=== PATIENT | male | born 1990 | race African-American/Black ===

== ENCOUNTER 2016-10-28 07:54 | Emergency (ER) | payer BC ==
--- NOTE | 2016-10-28 08:06 | EDM.PDOC ---
ED HPI Skin/Rash - General Chief Complaint: Skin Complaint Stated Complaint: ABCESS ON BUTTUCK Time Seen by Provider: 10/28/16 08:06 - History of Present Illness INITIAL COMMENTS - FREE TEXT/NARRATIVE: 26-year-old male presents emergency room with a six-day history of a worsening boil near his rectum. This is been present for 5-6 days and progressively getting worse. He has not had any nausea vomiting no painful BMs. Patient has felt warm a few nights ago but is not aware of any fevers. His past medical history is negative for any these in the past. The patient has been looking on line and decided it was probably best not to have his drain it. Past medical history is noncontributory - Related Data Allergies Allergy/AdvReac Type Severity Reaction Status Date / Time No Known Allergies Allergy Verified 10/28/16 08:03 Home Meds: Ambulatory Orders Medication Instructions Recorded Confirmed Acetaminophen/HYDROcodone [[place] 1 - 2 tab PO Q6H PRN #20 tablet 10/28/16 325-5 MG] Doxycycline Hyclate 100 mg PO Q12H #13 capsule 10/28/16 ED ROS GENERAL - Review of Systems Review Of Systems: See Below Constitutional: Reports: chills. Denies: fever HEENT: Reports: No symptoms Respiratory: Reports: No Symptoms Cardiovascular: Reports: No symptoms GI/Abdominal: Reports: No symptoms : Reports: no symptoms ED EXAM, SKIN/RASH Exam: See Below Exam Limited By: No limitations General Appearance: alert, no apparent distress Respiratory/Chest: no respiratory distress, lungs clear, normal breath sounds Cardiovascular: regular rate, rhythm, no edema, no murmur GI/Abdominal: normal bowel sounds, soft, non tender, no organomegaly, no distention, no abnormal bruit, no mass (Male) Exam: No hernia, Normal inspection, Normal prostate. No: Testicular tenderness (L) Rectal (Males) Exam: Normal exam, Normal rectal tone, Prostate normal. No: Rectal fissure, Tenderness Back Exam: normal inspection. No: CVA tenderness (L), CVA tenderness (R) Skin: Other (Patient has a 3-4 cm raised bulging warm tender area with a fluctuant top located anterior and to the left of the rectum. There is no tenderness between the presumed abscess in the rectum) ED SKIN PROCEDURES - I&D Site: Left-sided Gluteal fold anterior to rectum Skin prep: providone-iodine (betadine) Local anesthesia: Lidocaine: 1% plain Local anesthetic volume: 5cc Area incised with: 11 blade Drainage: purulent, bloody, large amount Probed to break up loculations: Yes Packed with: 1/2 in. iodoform Complications: No Progress/Comments: Patient tolerated the local numbing medication an incision and drainage without difficulty a 2 cm incision was placed using 11 blade relieving a large amount of exudative material culture obtained. Patient tolerated this without difficulty several inches of half-inch iodoform gauze was placed in to keep this open. Course - Vital Signs Last Recorded V/S: Last Vital Signs Temp 36.1 C 10/28/16 08:01 Pulse 76 10/28/16 08:01 Resp 16 10/28/16 08:01 BP 153/84 H 10/28/16 08:01 Pulse Ox 99 10/28/16 08:01 - Orders/Labs/Meds Orders: Active Orders 24 hr Category Date Time Status Doxycycline [Vibramycin] Med 10/28/16 08:51 Once 100 mg PO ONETIME ONE Medication Orders Doxycycline Hyclate (Vibramycin) 100 mg PO ONETIME ONE Stop: 10/28/16 08:52 Meds: Medications Generic Name Dose Route Start Last Admin Trade Name Freq PRN Reason Stop Dose Admin Doxycycline Hyclate 100 mg 10/28/16 08:51 Vibramycin PO 10/28/16 08:52 ONETIME ONE Discontinued Medications Generic Name Dose Route Start Last Admin Trade Name Freq PRN Reason Stop Dose Admin Lidocaine HCl 50 ml 10/28/16 08:31 Xylocaine 1% INJECT 10/28/16 08:32 ONETIME ONE Lidocaine HCl Confirm 10/28/16 08:36 Xylocaine 1% Administered 10/28/16 08:37 Dose 50 ml .ROUTE .STK-MED ONE - Re-Assessments/Exams Free Text/Narrative Re-Assessment/Exam: 10/28/16 08:[address] Obrien surgeon presentation manager. I will perform an incision and drainage and the patient will followup with Dr. Obrien in the next few days. Departure - Departure Time of Disposition: 08:53 Disposition: Home, Self-Care 01 Clinical Impression: Abscess, gluteal, left Prescriptions: Acetaminophen/HYDROcodone [[place] 325-5 MG] 1 - 2 tab PO Q6H PRN #20 tablet PRN Reason: Pain Doxycycline Hyclate 100 mg PO Q12H #13 capsule Referrals: Lucila Obrien MD [Physician] - Forms: ED Department Discharge Additional Instructions: Return to emergency room if any questions or problems. Followup with Dr. Obrien, she is a general surgeon. Followup with her on Friday or . Take warm sitz baths with Epsom salts 3-4 times a day for about 20 minutes at a time. If the packing comes out of the wound inserted another inch to inch and a half in to the abscess cavity and leave an inch out. This serves as a drain so the infectious material cannot reaccumulate. You have been started on doxycycline, this is an antibiotic take one twice daily until gone. You have also been given a pain medication, [place], this contains hydrocodone take one or 2 every 4 hours as needed for pain. Allow 12 hours after using this medication before driving or returning to work. This medication can cause constipation so if needed on a regular basis use Colace 100 mg twice daily. - My Orders Last 24 Hours: My Active Orders 10/28/16 08:51 Doxycycline [Vibramycin] 100 mg PO ONETIME ONE - Assessment/Plan Last 24 Hours: My Active Orders 10/28/16 08:51 Doxycycline [Vibramycin] 100 mg PO ONETIME ONE
[2016-10-28] MEDS ORDERED: Lidocaine 1% 20 ML MDV INJECT ONE (08:31)
[2016-10-28] MEDS ORDERED: Lidocaine 1% 50 ML MDV ONE (08:36)
[2016-10-28] MEDS ORDERED: Doxycycline 100 MG Cap PO ONE (08:51)
[2016-10-28 09:40] VITALS: BP 130/55
== END 2016-10-28 09:40 | disposition home or self-care (01) ==
LOC: JD.ED 07:54
DX: L02.31 Cutaneous abscess of buttock (principal); Z79.899 Other long term (current) drug therapy
CPT/HCPCS: 10061; 87070; 99283; A9270